=== PATIENT | female | born 1950 | race Caucasian/White ===

== ENCOUNTER 2016-08-25 06:56 | Day surgery (SDC) | payer MEDICARE, OTHER ==
[~2016-08-25 06:56] MED LIST: CEFAZOLIN SODIUM 2 GRAM PREMIX 100 ML IV ONE; IV START KIT ONE; LACTATED RINGERS 1,000 ML ONE
[2016-08-25] MEDS ORDERED: SODIUM CHLORIDE 0.9% 100 ML ONE (07:06)
[2016-08-25] MEDS ORDERED: LIDOCAINE 0.5%/EPI 1:200,000 (MULTIDOSE) 50 ML VIAL ONE (07:06)
[2016-08-25] MEDS ORDERED: METRONIDAZOLE 20 APPLIC/70 G TUBE ONE (07:06)
[2016-08-25] MEDS ORDERED: ESTROGENS,CONJUGATED CREAM 30 G/TUBE VG ONE (07:06)
[2016-08-25] MEDS ORDERED: BUPIVACAINE 0.5% (PRES FREE) 30 ML VIAL ONE (07:06)
[2016-08-25] MEDS ORDERED: EPIDURAL PROCEDURE TRAY ONE (07:26)
[2016-08-25] MEDS ORDERED: CEFAZOLIN SODIUM 2 GRAM DUPLEX 50 ML IV PRN (07:32)
[2016-08-25] MEDS ORDERED: KETAMINE HCL UD SYRINGE 100 MG/2 ML IV ONE (07:35)
[2016-08-25] MEDS ORDERED: PROPOFOL 40 ML IV ONE (07:35)
[2016-08-25] MEDS ORDERED: METOCLOPRAMIDE HCL 5 MG/ML 2ML VIAL ONE (07:35)
[2016-08-25] MEDS ORDERED: DEXAMETHASONE SOD PHOS 4 MG/1 ML VIAL ONE (07:35)
[2016-08-25] MEDS ORDERED: BUPIVACAINE 0.75% SPINAL AMPUL 2 ML ONE (07:35)
[2016-08-25] MEDS ORDERED: LIDOCAINE 2% (MULTI DOSE) 10 ML VIAL ONE (07:35)
[2016-08-25] MEDS ORDERED: MIDAZOLAM HCL 1 MG/ML 2ML VIAL ONE (07:35)
[2016-08-25] MEDS ORDERED: FENTANYL 100 MCG/2 ML VIAL ONE (07:35)
[2016-08-25] MEDS ORDERED: GENTAMICIN SULFATE 320 MG in SODIUM CHLORIDE 0.9% 100 ML IV ONE (07:45)
[2016-08-25] MEDS ORDERED: OPIUM/BELLADONNA ALKALOIDS 1 EACH SUP PR ONE (07:57)
[2016-08-25] MEDS ORDERED: NEOMY SULF/POLYMYXIN B SULFATE 1 ML AMP IR ONE (07:57)
[2016-08-25] MEDS ORDERED: EPHEDRINE SULFATE 50 MG/ML 1ML VIAL ONE (08:43)
[2016-08-25] MEDS ORDERED: ONDANSETRON 4 MG/2ML 2 ML VIAL ONE (08:47)
[2016-08-25] MEDS ORDERED: PROPOFOL 20 ML IV ONE (10:15)
[2016-08-25] MEDS ORDERED: MORPHINE SULFATE 2 MG/ML SYRINGE IV PRN (10:57)
[2016-08-25] MEDS ORDERED: HYDROCODONE/ACETAMINOPHEN 5/325MG TABLET PO PRN (10:57)
[2016-08-25] MEDS ORDERED: ONDANSETRON 4 MG/2ML 2 ML VIAL IV PRN (10:57)
[2016-08-25] MEDS ORDERED: MORPHINE SULFATE 4 MG/ML SYRINGE IV PRN (11:16)
--- NOTE | 2016-08-25 12:41 | OP ---
CIELO WALLER [id number] DATE OF OPERATION: August 25, 2016 SURGEON: Shaun Palomino M.D. BALANCE TRUING INSPECTOR: Wallace Freeman ANESTHESIA: Spinal. PREOPERATIVE DIAGNOSES: 1. Bladder outlet obstruction due to scar contracture suburethrally with fixed point resistance. 2. Cystocele grade 2 with kinking behind suburethral scarring. POSTOPERATIVE DIAGNOSES: 1. Bladder outlet obstruction due to scar contracture suburethrally with fixed point resistance. 2. Cystocele grade 2 with kinking behind suburethral scarring. PROCEDURE: 1. CYSTOSCOPY. 2. TROCAR SUPRAPUBIC CYSTOSTOMY TUBE PLACEMENT WITH DRAINAGE. 3. VAGINAL URETHROLYSIS. 4. ANTERIOR MESH CYSTOCELE REPAIR. SPECIMENS: None. INDICATIONS: Patient is a 66-year-old woman with a greater than six year history of recurring urinary tract infections which she tracks back to a 2010 hysterectomy. She reports severe lower urinary tract symptoms, and urodynamic studies demonstrated actual bladder outlet obstruction in the presence of a grade 2 cystocele with a large post void residual. Cystoscopy showed no erosions or other worrisome lesions. She does have a history of some sort of suburethral support procedure in approximately 1991 as well as a probable anterior and posterior repair. She has elected surgical intervention. FINDINGS: Dense suburethral scar forming a point of fixed resistance behind which the cystocele was causing a distinct kinking. Cystocele was grade 2. Subvesical scarring apparent consistent with a previous anterior repair. Internally, no fixed lesions although the compression mid urethra was apparent with scope passage. Ureteral orifices normally disposed. At the end of the case a floppy tipped wired passed easily up each ureter. PROCEDURE: The patient was identified and brought to the operating room where spinal anesthetic was applied. She was placed in the dorsal lithotomy position. The lower abdomen genitalia and vagina were prepped and draped sterilely. A site was selected 2 cm above the pubic brim near the midline and anesthetized with 0.5% Marcaine. It was opened with a stab incision. Next, cystoscopy was performed with a 17 [place] scope using water as an irrigant. Findings are reported above. We used the scope to overdistend the bladder as we placed the patient in Trendelenburg position and then passed a Bard 12 [place] trocar suprapubic tube system into the high anterior wall of the bladder under direct vision during expiratory phase. The trocar and stylet were removed, and the balloon was inflated and seated against the bladder wall. It was allowed to drain throughout the case and ultimately secured at the level of the skin with #2-0 nylon. The cystoscope was withdrawn and replaced with a Oliveira catheter to gravity drainage. A posterior weighted speculum was inserted followed by a [place] type retractor for labial retraction. I examined the anterior wall of the vagina subvesically and suburethrally. The point of rigid fixation was quite apparent. I began by anesthetizing the subvesical tissues beginning at the point of fixation and working posteriorly and then laterally and more posteriorly with injectable saline. I elected to begin a transverse incision just behind the level of the fixation, and then opened through her old midline scar subvesically. The flaps of vaginal tissue were then progressively elevated through the old scar tissue and out to the pelvic sidewalls and through the pelvic floor. I was able to sweep tissue away from the sacrospinous ligament on each side. The anterior apical vaginal tissue was secured with a #2-0 Vicryl suture to use for subsequent fixation. Next, we turned our attention suburethrally. From the open part of the incision, I opened vertically a short distance and began elevating the vaginal tissue away from the underlying densely scarred tissue out laterally on both sides. We spent a relatively extended period of time carefully dissecting through the dense scar tissue eventually incising it entirely on both sides to release it. I confirmed the release with the placement of a sound in the urethra after removing the Oliveira. That done, we first attempt to use a Capio device to place an anchoring barbs in the sacrospinous ligaments on each side, but the Capio clare itself from the intended graft. Therefore, we switched over to a Bard elevated type graft and secured the posterior limbs into the sacrospinous ligaments on each side. The graft itself was trimmed of its posterior flaps and then the posterior eyelets were pushed onto the extensions and back into position, and the locking eyelets applied. The midline of the graft posteriorly was secured to the preplaced #2-0 Vicryl suture. The anterior barbs were passed retropublically into scar tissue and secured. This brought the edge of the graft to the posterior edge of the scar contracture. The midline of the anterior edges secured with #2-0 Vicryl to the posterior lip of dense scar tissue. Because of the extensive dissection periurethrally, and the quality of the positioning of the anterior lip of the cystocele repair, I elected not place a separate sling in this case. Next, excess portions of the posterior extensions were removed, and the wound was irrigated with genitourinary irrigant containing some Betadine pain. Cystoscopy was repeated, and we saw urine from the left orifice and after waiting for several minute, we elected to pass a floppy tip wire up the tight ureter, which went very easily and similarly on the left side. That completed, we removed the cystoscope and irrigated the vagina once again. Starting posteriorly in the vaginal wound, we closed the wound in the midline with a running #2-0 Vicryl suture and then switched to a transverse closure anteriorly again with running #2-0 Vicryl suture. Once this was complete, we applied estrogen cream to the suture line followed by vaginal packing with Flagyl gel. The suprapubic tube was secured, waqar-pad was applied. Estimated blood loss of approximately 150 mL. Sponge and needle counts were correct. No early complications. Patient tolerated the procedure well and was taken in stable condition to the post anesthesia room. cc: Shaun Palomino M.D. Nina Carpenter M.D.
== END 2016-08-25 13:07 | disposition home or self-care (01) ==
LOC: SDC 06:56
PROVIDERS: ATTEND Urology
PROC: 0TND0ZZ Release Urethra, Open Approach (ICD-10-PCS; principal; 2016-08-25)
PROC: 0JUC07Z Supplement of Pelvic Region Subcutaneous Tissue and Fascia with Autologous Tissue Substitute, Open Approach (ICD-10-PCS; 2016-08-25)
DX: N32.0 Bladder-neck obstruction (principal); N81.10 Cystocele, unspecified; I10 Essential (primary) hypertension
CPT/HCPCS: 57240; 57267; 53500; 51102; J3010; J1580; J1100; A9270 ×3; J2765; J2250; J2405; J7120; J7050; J2001; J0690